=== PATIENT | female | born 1985 | race African-American/Black ===

== ENCOUNTER 2016-09-01 17:28 | Emergency (ER) | payer OTHER ==
[~2016-09-01] VITALS: Ht 157.5 cm; Wt 93.0 kg
[2016-09-01 19:59] VITALS: BP 128/74
== END 2016-09-01 20:00 | disposition home or self-care (01) ==
LOC: EME 17:28
DX: L50.9 Urticaria, unspecified (principal); R22.0 Localized swelling, mass and lump, head; Z87.891 Personal history of nicotine dependence
CPT/HCPCS: 99281; 99283